=== PATIENT | male | born 1940 | race Caucasian/White ===

== ENCOUNTER 2022-03-27 22:29 | Inpatient (IN) | payer MEDICARE ==
[~2022-03-27] VITALS: Ht 177.8 cm; Wt 83.9 kg
[2022-03-27] MEDS ORDERED: LORAZEPAM 0.5 MG TABLET PO ONE (23:00)
--- NOTE | 2022-03-27 23:00 | NUR ---
Patient saturating @87% on RA. notified
[2022-03-27] MEDS ORDERED: LORAZEPAM 1 MG TABLET ONE (23:05)
[2022-03-27 23:28] LABS: HEMATOCRIT 34.8 % (36.7-47.1); MEAN CORPUSCULAR HEMOGLOBIN 32.3 uug (23.8-33.4); MEAN CORPUSCULAR VOLUME 94.7 fL (73.0-96.2); PLATELET COUNT (AUTO) 185 K/uL (152-348)
[2022-03-27 23:42] LABS: ALANINE AMINOTRANSFERASE 34 U/L (16-63); ALKALINE PHOSPHATASE 88 U/L (50-136); ASPARTATE AMINOTRANSFERASE 36 U/L (15-37); BILIRUBIN,DIRECT 0.4 mg/dL (0.0-0.2); CARBON DIOXIDE 24 mmol/L (21-32); CHLORIDE 101 mmol/L (98-107); CREATININE 1.2 mg/dL (0.6-1.3); GLUCOSE 94 mg/dL (74-106); POTASSIUM 4.4 mmol/L (3.5-5.1); TOTAL PROTEIN, SERUM 6.1 g/dL (6.4-8.2); UREA NITROGEN, BLOOD 27 mg/dL (7-18)
[2022-03-28] MEDS ORDERED: LORAZEPAM 0.5 MG TABLET PO ONE (00:15)
[2022-03-28] MEDS ORDERED: ASPIRIN 81 MG TAB.CHEW ONE (00:15)
[2022-03-28] MEDS ORDERED: ASPIRIN 81 MG TAB.CHEW PO ONE (00:15)
[2022-03-28] MEDS ORDERED: NITROGLYCERIN OINT 1 GM PACKET TP ONE ×2 (00:15→00:16)
[2022-03-28] MEDS ORDERED: LORAZEPAM 1 MG TABLET ONE (00:16)
[2022-03-28] MEDS ORDERED: PROCHLORPERAZINE EDISYLATE 10 MG/2 ML VIAL ONE (00:25)
[2022-03-28] MEDS ORDERED: HYDROMORPHONE 2 MG/1 ML DISP.SYRIN ONE (00:26)
[2022-03-28] MEDS ORDERED: PROCHLORPERAZINE EDISYLATE 10 MG/2 ML VIAL IV ONE (00:30)
[2022-03-28] MEDS ORDERED: HYDROMORPHONE 1 MG/1 ML DISP.SYRIN IV ONE (00:30)
[2022-03-28] MEDS ORDERED: ENOXAPARIN SODIUM 80 MG/0.8 ML DISP.SYRIN SQ ONE ×2 (01:00→01:07)
[2022-03-28] MEDS ORDERED: MAGNESIUM SULFATE/D5W 300 ML ONE (01:07)
[2022-03-28] MEDS ORDERED: DILTIAZEM HCL 25 MG IV ONE (01:08)
[2022-03-28] MEDS ORDERED: DILTIAZEM HCL 25 MG IV IV ONE (01:15)
[2022-03-28] MEDS: MAGNESIUM SULFATE/D5W 100 ML IV SCH ×3 (01:15→02:15)
[2022-03-28] MEDS ORDERED: REMEDY ESSENTIAL ZINC PASTE 113 GM TP PRN (01:30)
[2022-03-28] MEDS ORDERED: MAGNESIUM HYDROXIDE 30 ML LIQUID UDC PO PRN (01:30)
[2022-03-28] MEDS ORDERED: ONDANSETRON 4 MG/2 ML VIAL IV PRN (01:30)
[2022-03-28] MEDS ORDERED: MELA3TAB41 PO (01:38)
[2022-03-28] MEDS ORDERED: COLL30OI TP (01:38)
[2022-03-28] MEDS ORDERED: CLOP75TA33 PO (01:38)
[2022-03-28] MEDS ORDERED: ASCO500T85 PO (01:38)
[2022-03-28] MEDS ORDERED: BISA10SU61 RC (01:38)
[2022-03-28] MEDS ORDERED: ROSU10TA2 PO (01:38)
[2022-03-28] MEDS ORDERED: LIDO30AD10 TP (01:38)
[2022-03-28] MEDS ORDERED: DICL100G31 TP (01:38)
[2022-03-28] MEDS ORDERED: PROP15DR OP (01:38)
[2022-03-28] MEDS ORDERED: LEVO750T46 PO (01:38)
[2022-03-28] MEDS ORDERED: DILT30TA2 PO (01:38)
[2022-03-28] MEDS ORDERED: ACET-2154 PO (01:38)
[2022-03-28] MEDS ORDERED: DAPA10TA PO (01:38)
[2022-03-28] MEDS ORDERED: MULT-213 PO (01:38)
[2022-03-28] MEDS ORDERED: POLY17PO4 PO (01:38)
[2022-03-28] MEDS ORDERED: METO-356 PO (01:38)
[2022-03-28] MEDS ORDERED: APIX5TAB PO (01:38)
[2022-03-28] MEDS: CEFTRIAXONE 1 G in IV DEXTROSE 5% 50 ML IV SCH ×2 (01:39→03:45)
[2022-03-28] MEDS ORDERED: ACETAMINOPHEN 325 MG TABLET-SA PATIENTS-PAIN ONLY PO PRN (01:45)
--- NOTE | 2022-03-28 02:10 | NUR ---
called 3rd floor for bed, spoke with Den RN. Patient assigned to room 320 TELE
[2022-03-28] MEDS ORDERED: SWABABLE VALVE TRANSFER SET EA MC ONE (02:20)
[2022-03-28] MEDS ORDERED: IV NORMAL SALINE 250 ML IV ONE (02:20)
--- NOTE | 2022-03-28 02:20 | NUR ---
Pt. taken to CT by Anirudh Murrell accompanied by Yamilet RING
--- NOTE | 2022-03-28 02:20 | NUR ---
Called [employer] Olivia RING, made aware that patient is CCU status.
[2022-03-28] MEDS ORDERED: IOHEXOL 350 100 ML INFUS..BTL ONE (02:21)
--- NOTE | 2022-03-28 02:21 | NUR ---
Per Olivia RINGbrush maker machine, patient will stay in ER as inpatient. No beds available in CCU.
--- NOTE | 2022-03-28 02:23 | NUR ---
ER charting will be done.
[2022-03-28] MEDS ORDERED: CHOLECALCIFEROL 1,000 UNIT TABLET PO SCH (02:30)
--- NOTE | 2022-03-28 03:00 | NUR ---
Pt. is back from CT
--- NOTE | 2022-03-28 03:15 | NUR ---
Called [facility] for hospital bed.
--- NOTE | 2022-03-28 03:25 | NUR ---
Perineal care done. stage 2 decub noted
[2022-03-28] MEDS ORDERED: AZITHROMYCIN IV 500 MG in IV DEXTROSE 5% 250 ML IV SCH (03:38)
[2022-03-28] MEDS ORDERED: CEFTRIAXONE /D5W 50ML IVPB **ER PYXIS IV ONE (03:45)
[2022-03-28] MEDS ORDERED: CHOLECALCIFEROL 1,000 UNIT TABLET ONE (03:46)
[2022-03-28] MEDS ORDERED: AZITHROMYCIN 500MG/ D5W 250ML IVPB **ER PYXIS ONLY IV ONE (03:46)
--- NOTE | 2022-03-28 04:40 | NUR ---
Patient is resting comfortably in bed with eyes closed, easily arousable.
--- NOTE | 2022-03-28 06:15 | NUR ---
Dr Valencia spoke with patient's Seryl. Patient aware of patient's status
--- NOTE | 2022-03-28 07:13 | NUR ---
endorsed to Oseas RING
--- NOTE | 2022-03-28 08:30 | NUR ---
Dr. Escalera stated that pt could go to telemetry instead of CCU.
[2022-03-28] MEDS ORDERED: LIDOCAINE 5% PATCH TD ONE (08:37)
[2022-03-28] MEDS ORDERED: DILTIAZEM HCL 30 MG TABLET ONE (08:38)
[2022-03-28] MEDS ORDERED: DEXAMETHASONE SOD PHOSPHATE 4 MG INJ ONE ×2 (08:38→09:17)
[2022-03-28] MEDS ORDERED: CLOPIDOGREL 75 MG TABLET ONE (08:39)
[2022-03-28] MEDS ORDERED: METOPROLOL SUCCINATE XL 25 MG TAB.SR.24H PO ONE (08:39)
[2022-03-28] MEDS ORDERED: PANTOPRAZOLE SODIUM 40 MG VIAL ONE (08:39)
[2022-03-28] MEDS ORDERED: POLYVINYL ALCOHOL OPHT DROPS 15 ML BOTTLE ONE (08:40)
[2022-03-28] MEDS ORDERED: ASCORBIC ACID 500 MG TABLET ONE (08:40)
[2022-03-28] MEDS ORDERED: Medication Not On Formulary EA (Multivitamins W-Minerals (Multivitamin With Minerals) 1 PO SCH (09:00)
[2022-03-28] MEDS ORDERED: DEXAMETHASONE SOD PHOSPHATE 4 MG INJ IV SCH (09:00)
[2022-03-28] MEDS ORDERED: DEXAMETHASONE SOD PHOSPHATE 10 MG INJ IV SCH (09:00)
[2022-03-28] MEDS ORDERED: MIRALAX 17 GM POWD.PACK PO PRN (09:00)
[2022-03-28] MEDS ORDERED: BISACODYL 10 MG SUPP.RECT RC PRN (09:00)
[2022-03-28] MEDS ORDERED: Medication Not On Formulary EA (Rosuvastatin Calcium (Crestor) 1 TAB) PO SCH (09:00)
[2022-03-28] MEDS: POLYVINYL ALCOHOL OPHT DROPS 15 ML BOTTLE EACHEYE SCH ×3 (09:10→18:15)
[2022-03-28] MEDS: DEXAMETHASONE SOD PHOSPHATE 4 MG INJ IV SCH (09:12)
[2022-03-28] MEDS: PANTOPRAZOLE SODIUM 40 MG VIAL IV SCH (09:12)
[2022-03-28] MEDS: DILTIAZEM HCL 30 MG TABLET PO SCH ×3 (09:13→18:14)
[2022-03-28] MEDS: CLOPIDOGREL 75 MG TABLET PO SCH (09:13)
[2022-03-28] MEDS: MULTIVIT, IRON, MIN NO. 8, FA TABLET PO SCH (09:13)
[2022-03-28] MEDS: METOPROLOL SUCCINATE XL 25 MG TAB.SR.24H PO SCH (09:14)
[2022-03-28] MEDS: ASCORBIC ACID 500 MG TABLET PO SCH (09:14)
[2022-03-28] MEDS: LIDOCAINE 5% PATCH TD SCH (09:55)
--- NOTE | 2022-03-28 10:41 | NUR ---
Called report to MARÍA ELENA Daley.
[2022-03-28] MEDS ORDERED: HYDROCODONE/APAP 5-325MG TABLET PO PRN (11:45)
[2022-03-28] MEDS ORDERED: REMDESIVIR (CHARGED) 200 MG in IV NORMAL SALINE 210 ML IV ONE (13:00)
[2022-03-28 13:40] VITALS: BP 120/64
[2022-03-28] MEDS: ACETAMINOPHEN 325 MG TABLET PO PRN ×2 (13:46→22:16)
[2022-03-28] MEDS: LORAZEPAM 1 MG TABLET PO PRN (13:48)
[2022-03-28] MEDS: APIXABAN 5 MG TABLET PO SCH ×2 (13:50→20:11)
[2022-03-28 16:34] VITALS: BP 115/71
--- NOTE | 2022-03-28 19:25 | NUR ---
Received Pt from day shift. Pt is A&Ox3 and is currently restless, gripping onto the siderails intermittently. Pt's current vitals are BP: 103/64, HR: 70, RR: 20, SpO2 97% on NC 2L, and T: 98.0 degrees. Will continue to monitor.
[2022-03-28 20:00] VITALS: BP 103/64
[2022-03-28] MEDS: ATORVASTATIN 40 MG TABLET PO SCH (20:01)
[2022-03-28] MEDS ORDERED: ATORVASTATIN 20 MG TABLET PO SCH (21:00)
[2022-03-28] MEDS ORDERED: MELATONIN 3 MG TABLET PO PRN (21:00)
[2022-03-28 23:57] VITALS: BP 104/62
[2022-03-29 04:00] VITALS: BP 105/65
[2022-03-29] MEDS: AZITHROMYCIN IV 500 MG in IV DEXTROSE 5% 250 ML IV SCH (04:52)
[2022-03-29] MEDS ORDERED: AZITHROMYCIN 500 MG VIAL IV ONE (05:33)
[2022-03-29] MEDS ORDERED: CEFTRIAXONE 1 G VIAL ONE (05:33)
[2022-03-29 06:15] LABS: ABG BASE EXCESS -2.2 mmol/L; ABG HCO3 20.1 mmol/L; ABG PCO2 27.6 mmHg (35.0-45.0); ABG PH 7.481 (7.350-7.450); ABG PO2 110.5 mmHg (75.0-100.0); ABG SITE RIGHT RADIAL; MetHb 0.1 % (0.0-1.5); O2Hb 98.2 % (94.0-97.0); VENT MODE Nasal Cannula
[2022-03-29] MEDS: CEFTRIAXONE 1 G in IV DEXTROSE 5% 50 ML IV SCH (06:34)
[2022-03-29 07:19] LABS: HEMATOCRIT 33.1 % (36.7-47.1); MEAN CORPUSCULAR HEMOGLOBIN 32.6 uug (23.8-33.4); MEAN CORPUSCULAR VOLUME 94.2 fL (73.0-96.2); PLATELET COUNT (AUTO) 211 K/uL (152-348)
[2022-03-29 07:39] LABS: BILIRUBIN,DIRECT 0.3 mg/dL (0.0-0.2); BILIRUBIN,TOTAL 0.8 mg/dL (0.2-1.0); CREATININE 1.1 mg/dL (0.6-1.3); TOTAL PROTEIN, SERUM 5.9 g/dL (6.4-8.2)
[2022-03-29 07:53] LABS: MAGNESIUM 2.1 mg/dL (1.8-2.4); PHOSPHOROUS 2.7 mg/dL (2.5-4.9)
[2022-03-29] MEDS: MULTIVIT, IRON, MIN NO. 8, FA TABLET PO SCH (08:07)
[2022-03-29] MEDS: LIDOCAINE 5% PATCH TD SCH (08:07)
[2022-03-29] MEDS: METOPROLOL SUCCINATE XL 25 MG TAB.SR.24H PO SCH (08:08)
[2022-03-29] MEDS: DEXAMETHASONE SOD PHOSPHATE 4 MG INJ IV SCH (08:08)
[2022-03-29] MEDS: DILTIAZEM HCL 30 MG TABLET PO SCH ×3 (08:08→16:39)
[2022-03-29] MEDS: CLOPIDOGREL 75 MG TABLET PO SCH (08:09)
[2022-03-29] MEDS: POLYVINYL ALCOHOL OPHT DROPS 15 ML BOTTLE EACHEYE SCH ×3 (08:09→16:40)
[2022-03-29] MEDS: ASCORBIC ACID 500 MG TABLET PO SCH (08:09)
[2022-03-29] MEDS: APIXABAN 5 MG TABLET PO SCH ×2 (08:11→20:49)
[2022-03-29] MEDS: PANTOPRAZOLE SODIUM 40 MG VIAL IV SCH (08:12)
[2022-03-29] MEDS: LORAZEPAM 1 MG TABLET PO PRN (08:23)
[2022-03-29 12:00] VITALS: BP 107/69
[2022-03-29] MEDS: REMDESIVIR (CHARGED) 100 MG in IV NORMAL SALINE 100 ML IV SCH (13:08)
[2022-03-29 16:00] VITALS: BP 109/66
[2022-03-29 20:37] VITALS: BP 102/66
[2022-03-29] MEDS: ATORVASTATIN 40 MG TABLET PO SCH (20:50)
[2022-03-30] VITALS: BP 114/68
[2022-03-30] MEDS: CEFTRIAXONE 1 G in IV DEXTROSE 5% 50 ML IV SCH (03:03)
[2022-03-30] MEDS: AZITHROMYCIN IV 500 MG in IV DEXTROSE 5% 250 ML IV SCH (04:07)
[2022-03-30] MEDS: PANTOPRAZOLE SODIUM 40 MG TABLET.DR PO SCH (06:35)
[2022-03-30 06:40] VITALS: BP 123/97
[2022-03-30 06:44] LABS: HEMATOCRIT 36.9 % (36.7-47.1); MEAN CORPUSCULAR VOLUME 93.9 fL (73.0-96.2); PLATELET COUNT (AUTO) 245 K/uL (152-348)
[2022-03-30 06:57] LABS: BILIRUBIN,DIRECT 0.3 mg/dL (0.0-0.2); BILIRUBIN,TOTAL 0.7 mg/dL (0.2-1.0); CREATININE 0.9 mg/dL (0.6-1.3); POTASSIUM 4.5 mmol/L (3.5-5.1)
[2022-03-30] MEDS: DILTIAZEM HCL 30 MG TABLET PO SCH ×3 (08:53→16:26)
[2022-03-30] MEDS: APIXABAN 5 MG TABLET PO SCH ×2 (08:54→20:25)
[2022-03-30] MEDS: MULTIVIT, IRON, MIN NO. 8, FA TABLET PO SCH (08:54)
[2022-03-30] MEDS: METOPROLOL SUCCINATE XL 25 MG TAB.SR.24H PO SCH (08:54)
[2022-03-30] MEDS: ASCORBIC ACID 500 MG TABLET PO SCH (08:54)
[2022-03-30] MEDS: POLYVINYL ALCOHOL OPHT DROPS 15 ML BOTTLE EACHEYE SCH ×3 (08:55→16:24)
[2022-03-30] MEDS: CLOPIDOGREL 75 MG TABLET PO SCH (08:55)
[2022-03-30] MEDS: DEXAMETHASONE SOD PHOSPHATE 4 MG INJ IV SCH (08:57)
[2022-03-30] MEDS: LIDOCAINE 5% PATCH TD SCH (08:58)
[2022-03-30 11:42] VITALS: BP 110/65
[2022-03-30] MEDS: REMDESIVIR (CHARGED) 100 MG in IV NORMAL SALINE 100 ML IV SCH (13:01)
[2022-03-30 16:00] VITALS: BP 117/64
[2022-03-30] MEDS: GLUCERNA SHAKE 237 ML CAN PO SCH (16:27)
--- NOTE | 2022-03-30 16:59 | NUR ---
Pt. noted to be stable during the shift. Alert and oriented x3, Able to make the need known. No c/o pain. All need attended and met. No acute distress noted. Compliance with the care given. Isolated due to covid 19 and no c/o SOB noted. Will keep monitoring the resident.
--- NOTE | 2022-03-30 19:38 | NUR ---
Received patient laying in bed comfortable. AAOx4. On 1L O2 via NC. No signs of distress noted at this time. Controlled A-fibb on tele monitor, HR 63. Left FA IV site is intact and patent. Safety and comfort measures enforced.
[2022-03-30] MEDS: ATORVASTATIN 40 MG TABLET PO SCH (20:25)
[2022-03-30 20:50] VITALS: BP 102/62
[2022-03-31 00:11] VITALS: BP 110/71
[2022-03-31] MEDS: CEFTRIAXONE 1 G in IV DEXTROSE 5% 50 ML IV SCH (02:32)
[2022-03-31] MEDS: AZITHROMYCIN IV 500 MG in IV DEXTROSE 5% 250 ML IV SCH (03:23)
[2022-03-31 04:45] VITALS: BP 115/71
[2022-03-31] MEDS: PANTOPRAZOLE SODIUM 40 MG TABLET.DR PO SCH (06:36)
--- NOTE | 2022-03-31 06:50 | NUR ---
Patient slept intermittently throughout the night. No complaints of pain or SOB. On 1L NC. Controlled a-fibb on tele monitor, HR 89. No adverse reaction noted after antibiotic administration. PT evaluation ordered per patients current mobility condition. Needs were attended to and met.
[2022-03-31 07:13] LABS: HEMATOCRIT 35.6 % (36.7-47.1); MEAN CORPUSCULAR HEMOGLOBIN 32.8 uug (23.8-33.4); MEAN CORPUSCULAR VOLUME 93.3 fL (73.0-96.2); PLATELET COUNT (AUTO) 277 K/uL (152-348)
[2022-03-31 07:40] LABS: BILIRUBIN,DIRECT 0.3 mg/dL (0.0-0.2); BILIRUBIN,TOTAL 0.7 mg/dL (0.2-1.0); POTASSIUM 4.5 mmol/L (3.5-5.1); TOTAL PROTEIN, SERUM 6.1 g/dL (6.4-8.2)
[2022-03-31] MEDS: GLUCERNA SHAKE 237 ML CAN PO SCH ×2 (08:00→13:14)
--- NOTE | 2022-03-31 08:00 | NUR ---
Fall precaution implemented. Pt has his life vest battery low and changed. PT denies any c/o pain. Call light is within reach. Sacral mepilex changed as ordered. Frequent turn q2 hrs implemented. Pt is in no acute distress.
[2022-03-31] MEDS: DEXAMETHASONE SOD PHOSPHATE 4 MG INJ IV SCH ×2 (08:01→09:07)
[2022-03-31] MEDS: LIDOCAINE 5% PATCH TD SCH (08:01)
[2022-03-31] MEDS: ASCORBIC ACID 500 MG TABLET PO SCH ×2 (08:02→09:09)
[2022-03-31] MEDS: CLOPIDOGREL 75 MG TABLET PO SCH (08:02)
[2022-03-31] MEDS: APIXABAN 5 MG TABLET PO SCH ×2 (08:04→20:54)
[2022-03-31] MEDS: DILTIAZEM HCL 30 MG TABLET PO SCH ×3 (09:11→17:22)
[2022-03-31] MEDS: MULTIVIT, IRON, MIN NO. 8, FA TABLET PO SCH (09:18)
[2022-03-31] MEDS: METOPROLOL SUCCINATE XL 25 MG TAB.SR.24H PO SCH (09:20)
[2022-03-31] MEDS: POLYVINYL ALCOHOL OPHT DROPS 15 ML BOTTLE EACHEYE SCH ×3 (09:22→17:22)
[2022-03-31 11:06] LABS: ALBUMIN 2.7 g/dL (2.9-4.4); ALPHA-1-GLOBULIN 0.3 g/dL (0.0-0.4); ALPHA-2-GLOBULIN 0.8 g/dL (0.4-1.0); GAMMA GLOBULIN 0.5 g/dL (0.4-1.8); GLOBULIN, TOTAL 2.6 g/dL (2.2-3.9); M-SPIKE Not Observed g/dL (Not Observed)
[2022-03-31] MEDS: REMDESIVIR (CHARGED) 100 MG in IV NORMAL SALINE 100 ML IV SCH (13:17)
[2022-03-31 13:29] VITALS: BP 118/79
--- NOTE | 2022-03-31 14:03 | NUR ---
WOUND CARE CONSULT: REVIEWED CHART, NURSING DOCUMENTATION AND PHOTOS WHICH INDICATE SACRAL DEEP TISSUE INJURY IN EVOLUTION WHICH EXTENDS TO BUTTOCKS, PRESENT ON ADMISSION. RECOMMENDATIONS MADE FOR SKIN PROTECTION. DISCUSSED WITH NURSING STAFF AND WITH SURGICAL P.A. FOR DR SCHNEIDER. IN AGREEMENT WITH PLAN OF CARE.
[2022-03-31 16:00] VITALS: BP 113/71
[2022-03-31 17:22] VITALS: BP 111/73
--- NOTE | 2022-03-31 18:21 | NUR ---
Pt is in no acute distress. Current HR 90 afib. Denies any c/o pain.
[2022-03-31 20:02] VITALS: BP 118/63
[2022-03-31] MEDS: ATORVASTATIN 40 MG TABLET PO SCH (20:54)
[2022-04-01 00:42] VITALS: BP 106/75
[2022-04-01] MEDS: CEFTRIAXONE 1 G in IV DEXTROSE 5% 50 ML IV SCH (02:43)
[2022-04-01] MEDS: AZITHROMYCIN IV 500 MG in IV DEXTROSE 5% 250 ML IV SCH (04:03)
[2022-04-01 04:20] VITALS: BP 116/81
[2022-04-01] MEDS: PANTOPRAZOLE SODIUM 40 MG TABLET.DR PO SCH (06:02)
[2022-04-01 07:15] LABS: HEMATOCRIT 39.5 % (36.7-47.1); MEAN CORPUSCULAR HEMOGLOBIN 31.9 uug (23.8-33.4); MEAN CORPUSCULAR VOLUME 96.3 fL (73.0-96.2); PLATELET COUNT (AUTO) 294 K/uL (152-348)
[2022-04-01 07:37] LABS: ALANINE AMINOTRANSFERASE 43 U/L (16-63); ALKALINE PHOSPHATASE 95 U/L (50-136); ASPARTATE AMINOTRANSFERASE 27 U/L (15-37); BILIRUBIN,DIRECT 0.3 mg/dL (0.0-0.2); BILIRUBIN,TOTAL 0.7 mg/dL (0.2-1.0); CARBON DIOXIDE 28 mmol/L (21-32); CHLORIDE 103 mmol/L (98-107); GLUCOSE 79 mg/dL (74-106); POTASSIUM 5.7 mmol/L (3.5-5.1); UREA NITROGEN, BLOOD 24 mg/dL (7-18)
--- NOTE | 2022-04-01 08:00 | NUR ---
Pt is in no acute distress. Pt co pain shoulder pain, lidocaine patch applied as ordered. Tele AFIB 130's gave routine meds as ordered. Pt is asymptomatic. Call light is within reach.
[2022-04-01] MEDS: MULTIVIT, IRON, MIN NO. 8, FA TABLET PO SCH (08:27)
[2022-04-01] MEDS: METOPROLOL SUCCINATE XL 25 MG TAB.SR.24H PO SCH (08:28)
[2022-04-01] MEDS: LIDOCAINE 5% PATCH TD SCH (08:29)
[2022-04-01] MEDS: ASCORBIC ACID 500 MG TABLET PO SCH (08:30)
[2022-04-01] MEDS: DEXAMETHASONE SOD PHOSPHATE 4 MG INJ IV SCH (08:32)
[2022-04-01] MEDS: CLOPIDOGREL 75 MG TABLET PO SCH (08:32)
[2022-04-01] MEDS: APIXABAN 5 MG TABLET PO SCH ×2 (08:37→21:40)
[2022-04-01] MEDS: GLUCERNA SHAKE 237 ML CAN PO SCH ×2 (08:44→13:07)
[2022-04-01] MEDS: DILTIAZEM HCL 30 MG TABLET PO SCH ×3 (08:44→17:01)
[2022-04-01] MEDS: POLYVINYL ALCOHOL OPHT DROPS 15 ML BOTTLE EACHEYE SCH ×3 (08:44→16:56)
[2022-04-01 11:56] VITALS: BP 97/67
[2022-04-01] MEDS: REMDESIVIR (CHARGED) 100 MG in IV NORMAL SALINE 100 ML IV SCH (13:06)
[2022-04-01] MEDS ORDERED: SODIUM POLYSTYRENE SULFONATE 15 G/60 ML LIQUID UDC PO ONE (15:00)
[2022-04-01 16:28] VITALS: BP 107/71
--- NOTE | 2022-04-01 18:17 | NUR ---
will notify next shift that no bm noted from [employer] yet and to monitor patient. Pain managed with [place], Lidocaine patch on shoulder. Pt on R/A 98%. No cough noted.
[2022-04-01 20:00] VITALS: BP 97/51
[2022-04-01] MEDS: ATORVASTATIN 40 MG TABLET PO SCH (21:41)
[2022-04-01 23:13] LABS: *CHLORIDE RNDM,URINE 54 mmol/L (100-250); *POTASSIUM RNDM,URINE 46 mmol/L (25-125)
[2022-04-02] VITALS: BP 115/75
[2022-04-02] MEDS: CEFTRIAXONE 1 G in IV DEXTROSE 5% 50 ML IV SCH (02:39)
[2022-04-02 04:00] VITALS: BP 100/55
--- NOTE | 2022-04-02 05:32 | NUR ---
Remain on contact isolation for COVID. All needs attended. VSS. Kept comfortable. Denies any pain nor any discomfort. Will monitor patient. On telemetry, patient controlled Afib.
[2022-04-02] MEDS: PANTOPRAZOLE SODIUM 40 MG TABLET.DR PO SCH (06:16)
[2022-04-02 07:38] LABS: HEMATOCRIT 35.6 % (36.7-47.1); MEAN CORPUSCULAR VOLUME 93.7 fL (73.0-96.2); PLATELET COUNT (AUTO) 313 K/uL (152-348)
[2022-04-02 07:58] LABS: CREATININE 0.9 mg/dL (0.6-1.3); MAGNESIUM 1.9 mg/dL (1.8-2.4); PHOSPHOROUS 2.7 mg/dL (2.5-4.9); POTASSIUM 4.5 mmol/L (3.5-5.1)
[2022-04-02 08:50] VITALS: BP 126/84
[2022-04-02] MEDS: POLYVINYL ALCOHOL OPHT DROPS 15 ML BOTTLE EACHEYE SCH ×3 (10:57→16:53)
[2022-04-02] MEDS: ASCORBIC ACID 500 MG TABLET PO SCH (11:03)
[2022-04-02] MEDS: MULTIVIT, IRON, MIN NO. 8, FA TABLET PO SCH (11:03)
[2022-04-02] MEDS: DEXAMETHASONE SOD PHOSPHATE 4 MG INJ IV SCH (11:03)
[2022-04-02] MEDS: CLOPIDOGREL 75 MG TABLET PO SCH (11:03)
[2022-04-02] MEDS: GLUCERNA SHAKE 237 ML CAN PO SCH ×2 (11:04→14:25)
[2022-04-02] MEDS: LIDOCAINE 5% PATCH TD SCH (11:06)
[2022-04-02] MEDS: METOPROLOL SUCCINATE XL 25 MG TAB.SR.24H PO SCH (11:11)
[2022-04-02] MEDS: DILTIAZEM HCL 30 MG TABLET PO SCH ×3 (11:12→16:54)
[2022-04-02] MEDS: APIXABAN 5 MG TABLET PO SCH (11:14)
[2022-04-02] MEDS ORDERED: MECLIZINE HCL 25 MG TABLET PO PRN (11:45)
[2022-04-02] MEDS ORDERED: ALPRAZOLAM 0.25 MG TABLET PO PRN (11:45)
[2022-04-02 11:52] VITALS: BP 116/66
[2022-04-02] MEDS ORDERED: CEFT1VIA15 IV (15:16)
[2022-04-02] MEDS ORDERED: DEXA6TAB6 PO (15:16)
[2022-04-02 15:40] VITALS: BP 125/63
[2022-04-02 16:54] VITALS: BP 117/78
--- NOTE | 2022-04-02 18:30 | NUR ---
Received report from lost charge card clerkKim, & paper report from [facility] shift RN. Patient is alert & oriented x3-4, with periods of forgetfulness. Vital signs within normal limits of baseline for patient. Per report, Patient had been on 2NC. At the beginning of the shift, RN noted client did not have NC on for awhile. RN received a 98% SatO2 on RA. RN relayed information to MD. Patient tolerates IV and PO medications and diet well. Patient voids adequately. No bowel movement noted during shift. Fall precautions maintained, via bed alarm and bed in low position. Patient participates with physical therapy as schedule, however refused the afternoon PT as he felt tired. Patient discharged orders were received. RN changed dressing on sacrum wound per MD order and took photos of wounds on sacrum and pelvic. RN printed in chart. RN provided discharge education to client. Patient verbalized understanding of teaching. Client signed documents. RN verified belonging list with client and Manda BURNETT. Regional Business Development Manager., Rose, called [facility] ambulance for pick-up. Ambulance came. RN gave report to BRI Parnell at 17:54pm. All questions answered. RN called [facility], and gave report to MARÍA ELENA Garza. All questions answered. RN remove tele monitor. 20G IV on Left Forearm patent, and saline lock. Patient going to SNF with IV antibiotics therapy scheduled. RN removed hospital ID from patient. Patient left at 18:30PM, in stable condition and no acute distress. RN called to notified Seryl () regarding the discharge at 18:30PM.
== END 2022-04-02 18:30 | DRG 177 ==
LOC: ER 22:52 → TRANSITION 03-28 03:30 → TELE3 03-28 10:25
PROVIDERS: ADMIT Nurse Practitioner Acute Care; ATTEND Nurse Practitioner Family
PROC: XW033E5 Introduction of Remdesivir Anti-infective into Peripheral Vein, Percutaneous Approach, New Technology Group 5 (ICD-10-PCS; principal; 2022-03-28)
DX: U07.1 COVID-19 (principal); I21.A1 Myocardial infarction type 2; J96.01 Acute respiratory failure with hypoxia; J12.82 Pneumonia due to coronavirus disease 2019; I48.20 Chronic atrial fibrillation, unspecified; E87.1 Hypo-osmolality and hyponatremia; N17.9 Acute kidney failure, unspecified; J44.0 Chronic obstructive pulmonary disease with (acute) lower respiratory infection; E44.0 Moderate protein-calorie malnutrition; E83.42 Hypomagnesemia; E86.1 Hypovolemia; E88.09 Other disorders of plasma-protein metabolism, not elsewhere classified; F41.0 Panic disorder [episodic paroxysmal anxiety]; I25.10 Atherosclerotic heart disease of native coronary artery without angina pectoris; I25.2 Old myocardial infarction; I25.5 Ischemic cardiomyopathy; K21.9 Gastro-esophageal reflux disease without esophagitis; Z96.653 Presence of artificial knee joint, bilateral; Z79.4 Long term (current) use of insulin; Z79.01 Long term (current) use of anticoagulants; Z95.5 Presence of coronary angioplasty implant and graft; D50.9 Iron deficiency anemia, unspecified; E11.9 Type 2 diabetes mellitus without complications; Z68.26 Body mass index [BMI] 26.0-26.9, adult; F41.9 Anxiety disorder, unspecified; I50.9 Heart failure, unspecified; I11.0 Hypertensive heart disease with heart failure; E87.5 Hyperkalemia; G89.29 Other chronic pain; G25.81 Restless legs syndrome; E83.9 Disorder of mineral metabolism, unspecified; L89.156 Pressure-induced deep tissue damage of sacral region; S01.112A Laceration without foreign body of left eyelid and periocular area, initial encounter; X58.XXXA Exposure to other specified factors, initial encounter; Y93.9 Activity, unspecified; Y92.129 Unspecified place in nursing home as the place of occurrence of the external cause
CPT/HCPCS: 36415; 36600; 71045; 71275; 83615; 83735; 83935; 83970; 84100; 84133; 84155; 84165; 84300; 84484; 85025; 85610; 85730; 86140; 93005; A4663; A6209; A6213; C9113; G0378; J0456; J0696; J0780; J1100; J1170; J1650; J3475; J3490; J7050; Q9967